=== PATIENT | male | born 1960 | race Caucasian/White ===

== ENCOUNTER → 2016-07-27 | Outpatient (REF) | payer OTHER ==
[2016-07-27 14:06] LABS: ALBUMIN 3.8 GM/DL (3.2-5.2); ALBUMIN/GLOBULIN RATIO 1.19 (1.00-1.93); BILIRUBIN,DIRECT 0.1 MG/DL (0.0-0.2); BILIRUBIN,TOTAL 0.5 MG/DL (0.2-1.0)
== END ==
LOC: M LAB REF 13:21
PROVIDERS: ATTEND Nurse Practitioner Family
DX: E78.2 Mixed hyperlipidemia (principal)

== ENCOUNTER → 2017-02-23 | Outpatient (REF) | payer OTHER | LOC: M LAB REF 17:07 | PROVIDERS: ATTEND Internal Medicine Nephrology | DX: E78.2 Mixed hyperlipidemia (principal) ==

== ENCOUNTER → 2017-03-02 | Outpatient (CLI) | payer OTHER ==
--- NOTE | 2017-03-02 17:38 | REP ---
RENAL AND BLADDER ULTRASOUND: Real-time sonographic evaluation of the kidneys is performed. The kidneys are normal in size and echotexture, the right kidney measuring 10.1 x 6.1 x 6.2 cm and left kidney 11.6 x 5.8 x 5.8 cm. There is no hydronephrosis bilaterally. There are multiple bilateral cysts present. There are three cysts in the right kidney, the largest is in the lower pole 2.3 x 1.8 x 2.0 cm. Two cysts are seen in the left kidney, the largest is in the upper pole 2.4 x 2.5 x 2.7 cm. No definite renal calculi are seen. Urinary bladder measures 10.8 x 6.6 x 7.3 cm for a total volume of 340 mL. Postvoid residual is 77 mL which is 23% of the original volume. Right ureteral jet is seen with Doppler color evaluation while left ureteral jet is not visualized. There is a diverticulum in the left side of the bladder. Bladder wall appears mildly thickened diffusely. IMPRESSION: No hydronephrosis. Bilateral renal cysts. Mild diffuse thickening of bladder wall with left sided bladder diverticulum. Mild postvoid residual. Signed by Kj Salas MD 03/02/2017 05:45 P
== END ==
LOC: M RAD 12:44
PROVIDERS: ATTEND Internal Medicine Nephrology
DX: N17.9 Acute kidney failure, unspecified (principal)

== ENCOUNTER → 2017-08-07 | Outpatient (REF) | payer OTHER ==
[2017-08-07 18:55] LABS: ESTIMATED AVERAGE GLUCOSE 355 MG/DL (60-110)
== END ==
LOC: M LAB REF 18:05
DX: E11.22 Type 2 diabetes mellitus with diabetic chronic kidney disease (principal)

== ENCOUNTER → 2021-02-03 | Outpatient (REF) | payer OTHER | LOC: M LAB REF 17:12 | PROVIDERS: ATTEND Nurse Practitioner Family | DX: E83.42 Hypomagnesemia (principal) ==

== ENCOUNTER → 2021-03-01 | Outpatient (CLI) | payer OTHER ==
--- NOTE | 2021-03-01 15:54 | REP ---
INDICATION: CKD 4. COMPARISON: 09/15/2017 TECHNIQUE: Real-time sonographic evaluation of the kidneys FINDINGS: Multiple ultrasonographic images of the right kidney show the right kidney to measure 11 x 5.4 x 5.9 cm. Once again, there are multiple hypoechoic/anechoic cystic structures seen throughout the right kidney essentially unchanged.. The renal cortical echotexture is unremarkable. There is good corticomedullary differentiation. There is no hydronephrosis. There are no perinephric fluid collections. Multiple ultrasonographic images of the left kidney show the left kidney to measure 11.5 x 4.9 x 5.7 cm. Once again, there are multiple anechoic/hypoechoic structures seen throughout the left kidney status quo. The renal cortical echotexture is unremarkable. There is good corticomedullary differentiation. There is no hydronephrosis. There are no perinephric fluid collections. IMPRESSION: Multiple bilateral renal cystic structures. Some of these have become somewhat hypoechoic compared to the prior exam suggesting somewhat complex cyst. Pre and postcontrast enhanced renal MRI is recommended for complete evaluation. <Electronically signed by Mario Arce > 03/01/21 [id number]
== END ==
LOC: M RAD 13:40
PROVIDERS: ATTEND Nurse Practitioner Family
DX: N18.4 Chronic kidney disease, stage 4 (severe) (principal); N28.1 Cyst of kidney, acquired

== ENCOUNTER → 2022-03-07 | Outpatient (CLI) | payer OTHER | LOC: M RAD 09:15 | PROVIDERS: ATTEND Nurse Practitioner Family | DX: N18.4 Chronic kidney disease, stage 4 (severe) (principal); N28.1 Cyst of kidney, acquired ==

== ENCOUNTER → 2024-12-24 | Outpatient (CLI) | payer MEDICARE, OTHER ==
[~2024-12-24] MED LIST: ISOVUE-370 76% 100 ML VIAL As Ordered ONE
== END ==
LOC: M RAD 13:32
PROVIDERS: ATTEND Nurse Practitioner Family
DX: N18.4 Chronic kidney disease, stage 4 (severe) (principal); N28.1 Cyst of kidney, acquired
CPT/HCPCS: 76775; Q9967

== ENCOUNTER → 2025-02-20 | Outpatient (REF) | payer MEDICARE ==
[2025-02-20 17:38] LABS: TOTAL PROTEIN,RANDOM URINE 81.3 MG/DL (0.0-14.0)
== END ==
LOC: M LAB REF 16:36
PROVIDERS: ATTEND Nurse Practitioner Family
DX: R80.9 Proteinuria, unspecified (principal); N18.4 Chronic kidney disease, stage 4 (severe)

== ENCOUNTER → 2025-05-21 | Outpatient (REF) | payer MEDICARE ==
[2025-05-21 18:29] LABS: IRON (FE) 83.0 UG/DL (65-175); PERCENT SATURATION 27.3 % (19.7-50.0)
== END ==
LOC: M LAB REF 17:46
PROVIDERS: ATTEND Nurse Practitioner Family
DX: D50.9 Iron deficiency anemia, unspecified (principal)